=== PATIENT | male | born 1960 | race Native Hawaiian/Other Pacific Islander ===

== ENCOUNTER 2016-07-02 13:33 | Inpatient (IN) | payer OTHER ==
[2016-07-02] VITALS (24 sets, daily range): BP systolic 111–184; BP diastolic 80–111; TEMP 97.3–98.3; Ht 165.1 cm; Wt 69.4 kg
[~2016-07-02] VITALS: Ht 165.1 cm; Wt 69.4 kg
[2016-07-02 15:16] LABS: PLATELET COUNT 460 K/uL (142-355)
[2016-07-02 15:27] LABS: POTASSIUM 4.5 mmol/L (3.6-5.2)
[2016-07-03] VITALS (31 sets, daily range): BP systolic 119–172; BP diastolic 77–110; TEMP 97.8–100.4
[2016-07-03 07:57] LABS: PLATELET COUNT 321 K/uL (142-355)
[2016-07-03 08:02] LABS: PARTIAL THROMBOPLASTIN TIME 25.9 SECONDS (24.5-33.6)
[2016-07-03 08:47] LABS: POTASSIUM 4.4 mmol/L (3.6-5.2); SODIUM 131 mmol/L (136-145)
[2016-07-04] VITALS (20 sets, daily range): BP systolic 104–1667; BP diastolic 10–97; TEMP 98.1–99.9
[2016-07-04 05:37] LABS: POTASSIUM 4.7 mmol/L (3.6-5.2); SODIUM 133 mmol/L (136-145)
[2016-07-04 11:02] LABS: PLATELET COUNT 239 K/uL (142-355)
[2016-07-05] VITALS (11 sets, daily range): BP systolic 138–182; BP diastolic 81–96; TEMP 98.2–98.4
[2016-07-05 08:15] LABS: PLATELET COUNT 254 K/uL (142-355)
[2016-07-05 08:22] LABS: POTASSIUM 3.2 mmol/L (3.6-5.2); SODIUM 137 mmol/L (136-145)
[2016-07-06] VITALS (8 sets, daily range): BP systolic 148–181; BP diastolic 82–106; TEMP 97.8–98.9
[2016-07-06 05:30] LABS: PLATELET COUNT 334 K/uL (142-355)
[2016-07-06 06:11] LABS: POTASSIUM 3.6 mmol/L (3.6-5.2); SODIUM 139 mmol/L (136-145)
[2016-07-07] VITALS (14 sets, daily range): BP systolic 122–157; BP diastolic 65–105; TEMP 97.8–99.4
[2016-07-07 07:08] LABS: PLATELET COUNT 284 K/uL (142-355)
[2016-07-07 07:27] LABS: POTASSIUM 3.5 mmol/L (3.6-5.2); SODIUM 140 mmol/L (136-145)
[2016-07-08] VITALS (14 sets, daily range): BP systolic 107–146; BP diastolic 76–94; TEMP 98–99
[2016-07-08 06:11] LABS: POTASSIUM 4.1 mmol/L (3.6-5.2); SODIUM 135 mmol/L (136-145)
[2016-07-08 06:13] LABS: PLATELET COUNT 365 K/uL (142-355)
== END 2016-07-08 18:20 | disposition home or self-care (01) | DRG 330 ==
LOC: MED/SURG 13:33 → ICU 13:33 → MED/SURG 07-08 10:50
PROVIDERS: Student in an Organized Health Care Education/Training Program; ADMIT Family Medicine
PROC: 0DT80ZZ Resection of Small Intestine, Open Approach (ICD-10-PCS; principal; 2016-07-03)
DX: K56.2 Volvulus (principal); K55.8 Other vascular disorders of intestine
CPT/HCPCS: 36415; 36591; 36600; 36620; 80048; 80053; 80074; 80307; 81000; 82150; 82805; 82962; 83605; 83690; 83735; 84100; 84153; 85007; 85027; 85610; 85730; 87040; 94760; 96365; 96372; C1768; G0479; J0690; J1170; J1630; J1644; J2001; J2060; J2175; J2250; J2270; J2405; J2543; J2550; J2704; J2710; J3010; J3475; J3486; J3490

== ENCOUNTER 2018-04-30 15:29 | Outpatient (CLI) | payer OTHER | END 2018-04-30 20:44 | disposition home or self-care (01) | LOC: US 15:29 | DX: N50.89 Other specified disorders of the male genital organs (principal) ==

== ENCOUNTER 2018-05-12 07:59 | Day surgery (SDC) | payer OTHER ==
[~2018-05-12] VITALS: Ht 30.5 cm; Wt 0.5 kg
[2018-05-12 08:37] LABS: PLATELET COUNT 312 K/uL (142-355)
[2018-05-12 08:53] LABS: POTASSIUM 4.1 mmol/L (3.6-5.2)
== END 2018-05-12 15:03 | disposition home or self-care (01) ==
LOC: OR 07:59
PROVIDERS: Student in an Organized Health Care Education/Training Program
PROC: 0YU50JZ Supplement Right Inguinal Region with Synthetic Substitute, Open Approach (ICD-10-PCS; principal; 2018-05-12)
DX: K40.90 Unilateral inguinal hernia, without obstruction or gangrene, not specified as recurrent (principal)
CPT/HCPCS: 80053; 85027; C1781; J0132; J0330; J0690; J1100; J1170; J1885; J2001; J2250; J2405; J2704; J2710; J2765; J3010; J3490